=== PATIENT | female | born 2000 | race Caucasian/White ===

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

== ENCOUNTER 2021-06-01 22:18 | Emergency (ER) | payer OTHER ==
[~2021-06-01 22:18] MED LIST: OMNICEF 300 MG300 MG PO; ZOFRAN ODT 4 MG4 MG PO
== END 2021-06-01 23:20 | disposition home or self-care (01) ==
LOC: ER1 22:18
PROVIDERS: Preventive Medicine Occupational Medicine
DX: R19.7 Diarrhea, unspecified (principal); T49.5X5A Adverse effect of ophthalmological drugs and preparations, initial encounter; Y92.9 Unspecified place or not applicable
CPT/HCPCS: 80307; 81001; 93005; 99284

== ENCOUNTER 2021-07-24 11:13 | Emergency (ER) | payer OTHER ==
[2021-07-24] MEDS ORDERED: MUCINEX DM ER1 EACH PO (15:36)
== END 2021-07-24 16:05 | disposition home or self-care (01) ==
LOC: ER1 11:13
DX: U07.1 COVID-19 (principal); J06.9 Acute upper respiratory infection, unspecified; Z91.013 Allergy to seafood; Z79.899 Other long term (current) drug therapy
CPT/HCPCS: 0240U; 71045; 86403; 87081; 87880; 99283